=== PATIENT | male | born 1950 | race African-American/Black ===

== ENCOUNTER 2016-11-17 20:20 | Emergency (ER) | payer OTHER ==
[~2016-11-17] VITALS: Ht 165.1 cm; Wt 68.2 kg
[~2016-11-17 20:20] MED LIST: ASPI-535 PO; ATOR40TA68 PO; DIVA250T60 PO; DIVA500T7 PO; ERGO500014 PO; HYDR12.58 PO; LEVE750T70 PO; LOSA25TA5 PO; LOSA50TA6 PO; METO-448 PO
[2016-11-17 20:22] VITALS: Ht 165.1 cm; Wt 68.2 kg
[2016-11-17] MEDS ORDERED: SOD CHLORIDE 0.9% 1,000 ML IV STA (20:54)
[2016-11-17] MEDS ORDERED: LEVETIRACETAM IV 1,000 MG in SOD CHLORIDE 0.9% 100 ML IVPB STA (20:54)
[2016-11-17] MEDS ORDERED: LOSA25TA2 PO (20:56)
[2016-11-17] MEDS ORDERED: HYDR-3671 PO (21:04)
[2016-11-17] MEDS ORDERED: LACT10SO5 PO (21:05)
[2016-11-17] MEDS ORDERED: LEVE500S9 PO (21:07)
[2016-11-17] MEDS ORDERED: ATILIQ PO (21:11)
[2016-11-17] MEDS ORDERED: METF-382 PO (21:16)
[2016-11-17] MEDS ORDERED: SOD CHLORIDE 0.9% 500 ML IV STA (21:16)
[2016-11-17] MEDS ORDERED: METO-429 PO (21:18)
[2016-11-17] MEDS ORDERED: MULT-105 PO (21:19)
[2016-11-17] MEDS ORDERED: LEVE500T8 PO (21:22)
[2016-11-17] MEDS ORDERED: OMEG1CAP2 PO (21:23)
[2016-11-17] MEDS ORDERED: PRED20TA PO (21:25)
[2016-11-17] MEDS ORDERED: TERA2CAP3 PO (21:26)
[2016-11-17] MEDS ORDERED: TRAZ50TA18 PO (21:27)
[2016-11-17] MEDS ORDERED: ACET325T33 PO (21:29)
[2016-11-17] MEDS ORDERED: SERT50TA PO (21:30)
[2016-11-17] MEDS ORDERED: ONDA4TAB8 PO (21:30)
[2016-11-17] MEDS ORDERED: INSU100V3 IJ (21:56)
[2016-11-17 22:02] LABS: BASOPHILS % 0.3 % (0.0-2.0); EOSINOPHILS % 0.1 % (0.0-7.0); HEMATOCRIT 36.7 % (42.0-52.0); HEMOGLOBIN 12.6 g/dl (14.0-18.0); LYMPHOCYTES # 1.9 10^3/ul (0.8-2.9); LYMPHOCYTES % 16.9 % (15.0-51.0); MEAN CORPUSCULAR HEMOGLOBIN 31.8 pg (29.0-33.0); MEAN CORPUSCULAR HGB CONC 34.5 g/dl (32.0-37.0); MEAN CORPUSCULAR VOLUME 92.1 fl (82.0-101.0); MEAN PLATELET VOLUME 11.7 fl (7.4-10.4); MONOCYTE # 0.9 10^3/ul (0.3-0.9); MONOCYTES % 7.8 % (0.0-11.0); NEUTROPHIL # 8.6 10^3/ul (1.6-7.5); NEUTROPHILS % 74.9 % (39.0-77.0); PLATELET COUNT 134 10^3/UL (140-440); RED BLOOD COUNT 3.98 10^6/ul (4.70-6.10); UNCORRECTED WBC 11.4 10^3/ul (4.8-10.8); WHITE BLOOD COUNT 11.4 10^3/ul (4.8-10.8)
[2016-11-17 22:07] LABS: CONDITION 1; LH ANALYZER COMMENTS 1
[2016-11-17 22:27] LABS: POTASSIUM 4.5 mmol/L (3.5-5.1)
[2016-11-17 22:28] LABS: POTASSIUM 4.7 mmol/L (3.5-5.1)
[2016-11-17 22:29] LABS: BILIRUBIN,INDIRECT 0.1 mg/dl (0-1.1); BILIRUBIN,TOTAL 0.1 mg/dl (0.2-1.3); CREATININE 0.9 mg/dl (0.61-1.24)
[2016-11-17 22:30] LABS: CALCIUM 8.6 mg/dl (8.4-10.2); CREATININE 0.89 mg/dl (0.61-1.24)
[2016-11-17 22:31] LABS: CALCIUM 8.9 mg/dl (8.4-10.2)
--- NOTE | 2016-11-17 22:31 | RADRPT ---
PROCEDURE: XR Chest. CLINICAL INDICATION: A pain. TECHNIQUE: Single AP portable chest COMPARISON: 08/25/2015 FINDINGS: The cardiomediastinal silhouette is within normal limits..The lungs are clear though pleural effusio n or focal consolidation. No pneumothorax. The osseous structures and soft tissues are unremarkable. IMPRESSION: No evidence for active cardiopulmonary disease. RPTAT:AAJJ Jerome May Physician Date Time Electronically viewed and signed by Jerome May Physician on 11/17/2016 22:31 MEMO/
[2016-11-17 22:41] LABS: TROPONIN-I 0.031 ng/ml (0.00-0.12)
--- NOTE | 2016-11-17 22:52 | ERD ---
ER Documentation Chief Complaint Date/Time DATE: 11/17/16 TIME: 22:42 Chief Complaint post ictal seizure,from [facility] All systems reviewed and are negative except as per history of present illness. Medications Home Meds Reported Medications Insulin Regular, Human (Humulin R) 100 Unit/1 Ml Vial, 100 UNIT IJ SLIDING SCALE , VIAL IF 80-249=0, FOR BS<80 GIVE OJ/SNACK AND RECHECK BS, IF BS STILL<80 CALL MD, 250-300=2UNITS, 301-349=4UNITS, 350-400=6UNITS IF >400 CALLMD 11/17/16 Sertraline Hcl* (Zoloft*) 50 Mg Tablet, 50 MG PO DAILY, #30 TAB 11/17/16 Ondansetron Hcl* (Zofran*) 4 Mg Tablet, 4 MG PO Q6H Y for NAUSEA AND OR VOMITING , TAB 11/17/16 Acetaminophen* (Tylenol*) 325 Mg Tablet, 650 MG PO Q4H Y for MILD PAIN LEVEL 1-3 , TAB FOR TEMP>100.5 11/17/16 Trazodone Hcl* (Trazodone Hcl*) 50 Mg Tablet, MG PO QHS, #30 TAB GIVE 0.5 TABLET QHS PRN 11/17/16 Terazosin Hcl* (Terazosin Hcl*) 2 Mg Capsule, 2 MG PO HS, CAP HOLD FOR SBP<110 11/17/16 Prednisone* (Prednisone*) 20 Mg Tab, 40 MG PO DAILY, TAB 11/17/16 [place]-3 Acid Ethyl Esters (Lovaza) 1 Gm Capsule, 1200 MG PO DAILY, CAP 11/17/16 Levetiracetam* (Levetiracetam*) 500 Mg Tablet, 1500 MG PO Q12, TAB 11/17/16 Multivitamin with Minerals (Multivitamins with Minerals) 1 Each Tablet, 1 EACH PO DAILY, TAB 11/17/16 Metoprolol Tartrate* (Lopressor*) 50 Mg Tab, 50 MG PO DAILY, #60 TAB HOLD FOR SBP<100 OR HR<60 11/17/16 Metformin Hcl* (Metformin Hcl*) 500 Mg Tablet, 500 MG PO WITH BREAKFAST DINNE, # 60 TAB 11/17/16 Lorazepam* (Ativan* Intensol) 2 Mg/Ml Soln, 1 ML PO Q5MIN Y for SEIZURES, #1 BOTTLE 1/27/17 Lactulose* (Lactulose*) 10 Gm/15 Ml Solution, 30 ML PO DAILY Y for PRN, ML 11/17/16 Hydralazine Hcl* (Hydralazine Hcl*) 25 Mg Tab, 25 MG PO Q8 Y for PRN, #90 TAB SBP>160 OR DBP>100 11/17/16 Ergocalciferol* (Drisdol* (Vitamin D2)) 50,000 Unit Capsule, 86786 UNIT PO Q7D, CAP 08/25/15 Divalproex Sodium* (Depakote*) 500 Mg Tablet.dr, 1500 MG PO QHS, TAB 08/25/15 Losartan Potassium* (Losartan Potassium*) 25 Mg Tablet, 75 MG PO DAILY, TAB HOLD FOR SBP<110 OR HR<60 01/14/15 Divalproex Sodium* (Depakote*) 500 Mg Tablet.dr, 1000 MG PO DAILY, TAB 01/14/15 Discontinued Reported Medications Levetiracetam* (Levetiracetam*) 500 Mg/5 Ml Solution, 1500 MG PO Q12, ML 11/17/16 Losartan Potassium* (Cozaar*) 25 Mg Tablet, 75 MG PO DAILY, #90 TAB HOLD FOR SBP<110 OR HR<60 11/17/16 Metoprolol Tartrate* (Lopressor*) 25 Mg Tab, 25 MG PO BID, TAB 08/25/15 Divalproex Sodium* (Depakote*) 250 Mg Tablet.dr, 250 MG PO BID 1 TAB TWICE DAILY IN ADDITION TO 100MG TWICE DAILY 08/25/15 Levetiracetam* (Keppra*) 750 Mg Tablet, 750 MG PO BID, TAB 08/25/15 Losartan Potassium* (Losartan Potassium*) 50 Mg Tablet, 50 MG PO DAILY, TAB 08/25/15 Aspirin Ec (Aspir 81) 81 Mg Tablet.dr, 81 MG PO DAILY, TAB 01/14/15 Hydrochlorothiazide* (Hydrochlorothiazide*) Unknown Strength Tablet, PO DAILY, TAB 01/14/15 Atorvastatin* (Atorvastatin*) 40 Mg Tablet, 40 MG PO HS, TAB 01/14/15 Levetiracetam* (Keppra*) 750 Mg Tablet, 750 MG PO BID, TAB 01/14/15 Allergies Allergies: Coded Allergies: Penicillins (Unverified Allergy, Unknown, 11/17/16) coconut oil (Unverified Allergy, Unknown, 11/17/16) peanut (Unverified Allergy, Unknown, 11/17/16) PMhx/Soc Chronic generalized muscle weakness and bedridden state, 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, chronic seizure disorder, hypertension, diabetes mellitus, prostate cancer, depression, anxiety History of Surgery: Yes (STENT PLACEMENT) Anesthesia Reaction: No Hx Neurological Disorder: Yes (SEIZURE) Hx Respiratory Disorders: No Hx Cardiac Disorders: Yes (NSTEMI, HTN,hyperlipidemia) Hx Psychiatric Problems: Yes (major depression) Hx Miscellaneous Medical Probl: Yes (DM) Hx Alcohol Use: No (UNK) Hx Substance Use: No (UNK) Hx Tobacco Use: No (UNK) Smoking Status: Unknown if ever smoked FmHx Family History: No diabetes Physical Exam Vitals Vital Signs Date Time Temp Pulse Resp B/P Pulse Ox O2 Delivery O2 Flow Rate FiO2 11/17/16 21:11 99.2 11/17/16 20:22 98.2 85 18 164/73 99 Physical Exam GENERAL: Well-developed man appears dehydrated, masklike facies HEENT: Dry mucous membranes, pink conjunctiva, no cervical spine tenderness or step-off deformities, no goiter, no jaundice or icterus, extraocular movements intact without pain. No submandibular induration, and no pharyngeal erythema NEURO: Pupils are equal round reactive to light, he has right upper and lower extremity paresis consistent with his history, no facial asymmetry, alert and oriented 3 able to answer questions and follow commands CARDIAC: Regular rate and rhythm, no murmurs rubs or gallops LUNGS: Clear bilaterally no wheezing crackles or stridor ABDOMEN: Soft nontender, no guarding, no rigidity, no rebound, no psoas sign no obturator sign. Normoactive bowel sounds SKIN: Warm and dry to touch, no abrasions, contusions, or hematomas, no lacerations, no ecchymosis, no target lesions, and without ulcers EXTREMITIES: Diffuse muscular wasting consistent with history, no clubbing cyanosis or edema, calves are bilaterally symmetrical, no Homans sign, no popliteal cord sign. Distal pulses equal and bilateral PSYCH: Flat affect although does not appear depressed Result Diagram: 1/27/17 2130 1/27/17 2130 Results 24 hrs Laboratory Tests Test 11/17/16 21:30 Alanine Aminotransferase (ALT/SGPT) 88IU/L Albumin 3.0g/dl Albumin/Globulin Ratio 1.00 Alkaline Phosphatase 115IU/L Anion Gap 19 Aspartate Amino Transf (AST/SGOT) 84IU/L Basophils # 0.010^3/ul Basophils % 0.3% Blood Morphology Comment Blood Urea Nitrogen 26mg/dl Calcium Level 8.6mg/dl Carbon Dioxide Level 23mmol/L Chloride Level 101mmol/L Creatinine 0.90mg/dl Direct Bilirubin 0.00mg/dl Eosinophils # 0.010^3/ul Eosinophils % 0.1% Globulin 3.00g/dl Glucose Level 152mg/dl Hematocrit 36.7% Hemoglobin 12.6g/dl Indirect Bilirubin 0.1mg/dl Lipase 724U/L Lymphocytes # 1.910^3/ul Lymphocytes % 16.9% Mean Corpuscular Hemoglobin 31.8pg Mean Corpuscular Hemoglobin Concent 34.5g/dl Mean Corpuscular Volume 92.1fl Mean Platelet Volume 11.7fl Monocytes # 0.910^3/ul Monocytes % 7.8% Neutrophils # 8.610^3/ul Neutrophils % 74.9% Nucleated Red Blood Cells # 0.010^3/ul Nucleated Red Blood Cells % 0.0/100WBC Platelet Count 10969^3/UL Potassium Level 4.5mmol/L Red Blood Count 3.9810^6/ul Red Cell Distribution Width 19.0% Sodium Level 138mmol/L Total Bilirubin 0.1mg/dl Total Protein 6.0g/dl Troponin I Pending White Blood Count 11.410^3/ul Current Medications Medications (Trade) Dose Ordered Sig/Amara Route PRN Reason Start Time Stop Time Status Last Admin Dose Admin Sodium Chloride 1,000 ml @ 1,000 mls/hr Q1H STAT IV 11/17/16 20:54 11/17/16 21:53 DC 11/17/16 22:06 Levetiracetam 1000 mg/Sodium Chloride 110 ml @ 400 mls/hr ONCE STAT IVPB 11/17/16 20:54 11/17/16 21:10 DC 11/17/16 22:13 Sodium Chloride (NS) 500 ml @ 500 mls/hr Q1H STAT IV 11/17/16 21:16 11/17/16 22:15 DC Procedures/MDM IV line was established patient was placed on secured entrance monitor rhythm strip revealed a sinus rhythm at about 80 bpm with upright P and T waves. Patient was afebrile. I administered 1 L normal saline intravenously for dehydration as well as Keppra 1 g IV due to breakthrough seizure which occurred at the scene. EKG was performed, read by me he has a normal sinus rhythm at 80 bpm, normal axis with diffuse ST depressions and T-wave inversions and evidence of left ventricular hypertrophy in precordial leads. I compared this EKG with one done in early 2014 and it is unchanged, family members are aware of his abnormal EKG. Chest X-ray 1V Interpreted by me: Soft Tissue: No acute abnormalities Bones: No acute abnormalities Mediastinum/Cardiac Silhouette/Lungs: No acute abnormalities CBC was unremarkable, electrolytes revealed dehydration with a BUN/creatinine of 26/0.9, liver function tests were normal, troponin was negative. Urine analysis has been ordered results are pending I will follow-up, if positive I will treat him as an outpatient with oral antibiotics. Family members were at the bedside state his mental status has improved to baseline. Differential diagnoses considered, included but not limited to acute coronary syndrome, pulmonary embolism, aortic dissection, abdominal aortic aneurysm, sepsis, stroke, meningitis, encephalitis, pneumonia, appendicitis, cholecystitis , bowel obstruction, pyelonephritis, nephrolithiasis, cystitis, as well as metabolic, hematologic, and electrolyte abnormalities. As well as abscess, cellulitis, fractures, and dislocations. Patient feels much better at this time, and vital signs are normal, symptoms have improved. I did give strict instructions to return to the ED if symptoms continue or worsen, patient will otherwise follow-up with primary care physician. Patient understood instructions and agreed to plan. Departure Diagnosis: Primary Impression: Breakthrough seizure Additional Impressions: Dehydration Postictal state Condition: Good Patient Instructions: Seizure, Recurrent [Adult] MARGOT ROTIZ MD Nov 17, 2016 22:52
[2016-11-17 23:56] LABS: ADD UMIC YES; URINE BILIRUBIN (Dip) NEGATIVE (NEGATIVE); URINE GLUCOSE (Dip) NEGATIVE (NEGATIVE); URINE KETONES (Dip) TRACE (NEGATIVE); URINE LEUKOCYTE ESTERASE (Dip) NEGATIVE (NEGATIVE); URINE NITRITE (Dip) NEGATIVE (NEGATIVE); URINE TOTAL PROTEIN (Dip) 1+ (NEGATIVE); URINE UROBILINOGEN (Dip) 0.2 E.U./dL (0.1-1.0)
[2016-11-18 00:11] LABS: URINE COLOR PALE RED (YELLOW)
[2016-11-18 00:12] LABS: URINE BLOOD (Dip) 3+ (NEGATIVE); URINE RBCS >50 /HPF (0)
[2016-11-18 00:14] LABS: BACTERIA,URINE RARE; SQUAMOUS EPITHELIAL CELL,UR FEW
[2016-11-18 00:16] VITALS: BP 148/70; PULSE 69; RESP 15; TEMP 97.9
== END 2016-11-18 00:17 | disposition home or self-care (01) ==
LOC: E/R 20:20
DX: G40.409 Other generalized epilepsy and epileptic syndromes, not intractable, without status epilepticus (principal); E86.0 Dehydration; E11.9 Type 2 diabetes mellitus without complications; I10 Essential (primary) hypertension; Z79.4 Long term (current) use of insulin; Z79.84 Long term (current) use of oral hypoglycemic drugs; Z91.010 Allergy to peanuts; Z85.46 Personal history of malignant neoplasm of prostate; Z95.5 Presence of coronary angioplasty implant and graft
CPT/HCPCS: 36415; 71010; 80048; 80053; 81001; 82962; 83690; 84484; 85025; 96374; 99285; J1953; J7030; J7040; P9612; 81003; 93005